=== PATIENT | female | born 1950 | race Caucasian/White ===

== ENCOUNTER 2017-09-10 05:58 | Day surgery (SDC) | payer OTHER ==
[2017-09-09 15:25] VITALS: BMI 27.1
[2017-09-10] VITALS (9 sets, daily range): BP systolic 105–142; BP diastolic 44–64; PULSE 58–66; RESP 14–29; Ht 149.9 cm; Wt 60.7 kg
[~2017-09-10] VITALS: Ht 149.9 cm; Wt 60.7 kg
[~2017-09-10 05:58] MED LIST: CYCLOPENTOLATE 2% 2 ML OPH OPER SCH; DICLOFENAC 0.1% 2.5 ML OPH OPER SCH; LACTATED RINGER'S 1,000 ML IV SCH; LIDOCAINE 3.5% GEL TUBE OPER ONE; MOXIFLOXACIN 0.5% 3 ML OPH OPER SCH; PHENYLephrine 10% 5 ML OPH OPER SCH; TETRACAINE 0.5% 4 ML OPH OPER SCH; losartan; nasal spray
[2017-09-10] MEDS ORDERED: CEPH500C PO (06:05)
[2017-09-10] MEDS ORDERED: BRIM15DR2 RIGHT EYE (06:05)
[2017-09-10] MEDS ORDERED: METO-429 PO (06:05)
[2017-09-10] MEDS ORDERED: ACET-2047 PO (06:05)
[2017-09-10] MEDS ORDERED: LOSA25TA5 PO (06:05)
[2017-09-10] MEDS ORDERED: HYDR12.53 PO (06:05)
[2017-09-10] MEDS ORDERED: TROPICAMIDE 1% 3 ML OPH OPER SCH (06:30)
[2017-09-10] MEDS ORDERED: BROMFENAC SODIUM 1.7 ML OPH DROP OPER SCH (06:30)
[2017-09-10] MEDS ORDERED: CYCLOPENTOLATE 2% 2 ML OPH OPER SCH (06:30)
[2017-09-10] MEDS ORDERED: LIDOCAINE 3.5% GEL TUBE OPER ONE (06:30)
[2017-09-10] MEDS ORDERED: PHENYLephrine 10% 5 ML OPH OPER SCH (06:30)
[2017-09-10] MEDS ORDERED: LACTATED RINGER'S 1,000 ML IV SCH (06:30)
[2017-09-10] MEDS ORDERED: TETRACAINE 0.5% 4 ML OPH OPER SCH (06:30)
[2017-09-10] MEDS ORDERED: MOXIFLOXACIN 0.5% 3 ML OPH OPER SCH (06:30)
[2017-09-10] MEDS ORDERED: TOBRAMYCIN 0.3% 3.5 GM OPH OINT ONE (06:43)
[2017-09-10] MEDS ORDERED: CARBACHOL 0.01% 1.5 ML OPH INJ ONE ×2 (06:43→08:32)
[2017-09-10] MEDS ORDERED: EPINEPHrine 1 MG INJ ONE (06:43)
[2017-09-10] MEDS ORDERED: LIDOCAINE 2%/EPI (MDV) 20ML INJ ONE (06:45)
[2017-09-10] MEDS ORDERED: LIDOCAINE 2%/EPI MPF (SDV) 20 ML VIAL INJ ONE (07:00)
[2017-09-10] MEDS ORDERED: CARBACHOL 0.01% 1.5 ML OPH INJ IO ONE ×2 (07:00→08:09)
--- NOTE | 2017-09-10 07:04 | HPN ---
Date/Time of Note Date/Time of Note DATE: 09/10/17 TIME: 07:04 Interval H&P Admission Note Pt. seen H&P reviewed: No system changes AARON MADRIGAL D.O. Sep 10, 2017 07:04
[2017-09-10] MEDS ORDERED: NA HYALURONATE/CHONDROITIN 0.5 ML SYG ONE (07:11)
[2017-09-10] MEDS ORDERED: MIDAZOLAM 1 MG/ML 2 ML INJ ONE (07:20)
[2017-09-10] MEDS ORDERED: FENTAnyl 50 MCG/ML VIAL ONE (07:20)
[2017-09-10] MEDS ORDERED: TRYPAN BLUE 0.5 ML SYG IO ONE (07:35)
[2017-09-10] MEDS ORDERED: CEFAZOLIN 1 GM INJ ONE (07:39)
[2017-09-10] MEDS ORDERED: METOCLOPRAMIDE 10 MG INJ ONE (07:39)
[2017-09-10] MEDS ORDERED: ONDANSETRON 4 MG INJ ONE (07:39)
[2017-09-10] MEDS ORDERED: DEXAMETHASONE 4 MG/ML 1 ML INJ ONE (07:39)
[2017-09-10] MEDS ORDERED: TOBRAMYCIN 0.3% 3.5 GM OPH OINT RIGHT EYE ONE (08:15)
[2017-09-10] MEDS ORDERED: DIPHENHYDRAMINE 50 MG INJ IV PRN (08:30)
[2017-09-10] MEDS ORDERED: LABETALOL HCL 20MG INJ IV PRN (08:30)
[2017-09-10] MEDS ORDERED: ONDANSETRON 4 MG INJ IV PRN (08:30)
[2017-09-10] MEDS ORDERED: OXYCODONE/ACETAMINOPHEN (5/325) TAB PO PRN (08:30)
[2017-09-10] MEDS ORDERED: MEPERIDINE 25 MG INJ IV PRN (08:30)
[2017-09-10] MEDS ORDERED: morphine (1 MG/ML) 10ML SYRINGE IV PRN (08:30)
[2017-09-10] MEDS ORDERED: EPHEDrine SULFATE 50 MG/5 ML SYG IV PRN (08:30)
[2017-09-10] MEDS ORDERED: FENTAnyl 50 MCG/ML VIAL IV PRN (08:30)
--- NOTE | 2017-09-10 08:33 | SIPON ---
Date/Time of Note Date/Time of Note DATE: 09/10/17 TIME: 08:28 Operative Report Preoperative Diagnosis hypermature senile cataract,Rt eye Postoperative Diagnosis Hypermature senile cataract, Rt.eye Operation/Procedure Performed Extracapsular cataract extraction with IOL implantation and partial anterior vitrectomy. Surgeon see signature line accountant assistant none Anesthesia: MAC Estimated blood loss: none Transfusion Required none Specimen none Grafts/Implants [employer] , model L122UV , Power + 19.00 Complications none AARON MADRIGAL D.O. Sep 10, 2017 08:33
--- NOTE | 2017-09-10 08:33 | SIPON ---
Date/Time of Note Date/Time of Note DATE: 09/10/17 TIME: 08:28 Operative Report Preoperative Diagnosis hypermature senile cataract,Rt eye Postoperative Diagnosis Hypermature senile cataract, Rt.eye Operation/Procedure Performed Extracapsular cataract extraction with IOL implantation and partial anterior vitrectomy. Surgeon see signature line phlebotomist medical lab assistant none Anesthesia: MAC Estimated blood loss: none Transfusion Required none Specimen none Grafts/Implants [employer] , model L122UV , Power + 19.00 Complications none AARON MADRIGAL D.O. Sep 10, 2017 08:33
--- NOTE | 2017-09-10 08:33 | SIPON ---
Date/Time of Note Date/Time of Note DATE: 09/10/17 TIME: 08:28 Operative Report Preoperative Diagnosis hypermature senile cataract,Rt eye Postoperative Diagnosis Hypermature senile cataract, Rt.eye Operation/Procedure Performed Extracapsular cataract extraction with IOL implantation and partial anterior vitrectomy. Surgeon see signature line expanded duty dental assistant none Anesthesia: MAC Estimated blood loss: none Transfusion Required none Specimen none Grafts/Implants [employer] , model L122UV , Power + 19.00 Complications none AARON MADRIGAL D.O. Sep 10, 2017 08:33
--- NOTE | 2017-09-10 12:51 | OPR ---
DATE OF OPERATION: 09/10/2017 SURGEON: Verito Rodriguez MD ANESTHESIOLOGIST: Al Glaser MD PREOPERATIVE DIAGNOSIS: Hypermature senile cataract, right eye. POSTOPERATIVE DIAGNOSIS: Hypermature senile cataract, right eye. OPERATION PERFORMED: Extracapsular cataract extraction with intraocular lens implantation and partial anterior vitrectomy of the lens contents. PROCEDURE PLANNED: Extracapsular cataract extraction with intraocular lens implantation, right eye. CONSENT: Patient was informed of the possibility of complication due to high level of maturity of cataract. The patient is aware of the possibility of bleeding, infection, loss of the lens fragment, loss of the lens, loss of intraocular lens, rupture of capsular bag, vitreous prolapse and retina detachment. The possibility of loss of vision and loss of the eye as an organ. Patient understands and signed consent can be found in her chart. DESCRIPTION OF PROCEDURE: The patient was brought to the operative room in stable condition, placed in supine position on operating table and her right eye was prepped for cataract surgery in the routine sterile technique. A keratome was used for entrance to the anterior chamber with clear cornea incision created. This was followed by injection of preservative free lidocaine with epinephrine and Viscoat agent. Then trypan blue dye was injected to stain anterior capsule. This was followed by irrigation of dye material. Then capsulorrhexis was performed with cystotome and Utrata forceps. Then hydrodissection was performed and a wave of nuclear movement was noticed. The nucleus was very loose and not naturally stable. Then, entrance incision was enlarged up to 6 mm and loop was used with additional pressure from opposite side with muscle hook and the nucleus was removed manually from anterior chamber. This was followed by irrigation and aspiration of cortex material and partial anterior vitrectomy. Then additional Viscoat and Miochol was injected and then B[employer]ch and Lomb lens model L122UV power +19.0 was inserted and centered. The wound was closed with 10-0 uninterrupted suture. An air bubble was injected for protection of cornea endothelium. Then, TobraDex ointment was instilled into conjunctival sac and patch was placed over closed eyelid. Dictated By: VERITO RODRIGUEZ MD NT/NTS Conf#: [id number] DID#: [id number] [facility]Jean
== END 2017-09-10 10:00 | disposition home or self-care (01) ==
LOC: SDS 05:58
PROVIDERS: ATTEND Ophthalmology
DX: H25.21 Age-related cataract, morgagnian type, right eye (principal); J45.909 Unspecified asthma, uncomplicated; I10 Essential (primary) hypertension
CPT/HCPCS: 66984; 67005; J0171; J0690; J1100; J2250; J2405; J2765; J3010; V2630